=== PATIENT | male | born 1960 | race Caucasian/White ===

== ENCOUNTER → 2022-04-09 | Day surgery (SDC) | payer BC ==
[2022-04-06 10:09] VITALS: BMI 43.5
[~2022-04-09] MED LIST: LACTATED RINGERS 1,000 ML IV SCH; PROPOFOL 10 MG/ML 20 ML VIAL IV ONE
--- NOTE | 2022-04-09 07:38 | P.GSHP ---
History of Present Illness H&P Date: 04/09/22 CHIEF COMPLAINT: GERD HISTORY OF PRESENT ILLNESS: The patient is a 61-year-old male who presents reports gastroesophageal reflux disease. Upper endoscopy was offered for further evaluation and management. PAST MEDICAL HISTORY: Please see list. PAST SURGICAL HISTORY: Please see list. MEDICATIONS: Please see list. ALLERGIES: Please see list. SOCIAL HISTORY: No illicit drug use FAMILY HISTORY: No reports of Crohn disease or ulcerative colitis. REVIEW OF ORGAN SYSTEMS: CONSTITUTIONAL: No reports of fevers or chills. GI: Denies any blood in stools or constipation. PHYSICAL EXAM: VITAL SIGNS: Stable GENERAL: Well-developed and pleasant in no acute distress. HEENT: No scleral icterus. Extraocular movements grossly intact. Moist buccal mucosa. NECK: Supple without lymphadenopathy. CHEST: Unlabored respirations. Equal bilateral excursions. CARDIOVASCULAR: Regular rate and rhythm. Distal 2+ pulses. ABDOMEN: Soft, nondistended. MUSCULOSKELETAL: No clubbing, cyanosis, or edema. ASSESSMENT: 1. Gastroesophageal reflux disease PLAN: 1. Recommend proceeding with an upper endoscopy Past Medical History Past Medical History: Thyroid Disorder Additional Past Medical History / Comment(s): constipation, hypothyroid History of Any Multi-Drug Resistant Organisms: None Reported Past Surgical History: Orthopedic Surgery Additional Past Surgical History / Comment(s): left hand surgery Past Anesthesia/Blood Transfusion Reactions: No Reported Reaction, Motion Sickness Past Psychological History: No Psychological Hx Reported Smoking Status: Former smoker, Unknown if ever smoked Past Alcohol Use History: Occasional Additional Past Alcohol Use History / Comment(s): quit smoking 18 yrs ago (2003)., started smoking high school, hx of 1 ppd. Past Drug Use History: None Reported - Past Family History Mother Family Medical History: Cancer Additional Family Medical History / Comment(s): colon cancer Sister(s) Family Medical History: Cancer Medications and Allergies Home Medications Medication Instructions Recorded Confirmed Type Levothyroxine Sodium [Synthroid] 175 mcg PO DAILY 03/08/22 04/06/22 History Allergies Allergy/AdvReac Type Severity Reaction Status Date / Time Penicillins Allergy Unknown Verified 04/06/22 10:02 Childhood
[2022-04-09 08:22] VITALS: TEMP 98.4
[2022-04-09 09:18] VITALS: BP 140/85; PULSE 78; RESP 16
--- NOTE | 2022-04-09 09:59 | P.PCN ---
Date of Procedure: 04/09/22 Description of Procedure: PREOPERATIVE DIAGNOSIS: Gastroesophageal reflux disease. Morbid obesity. POSTOPERATIVE DIAGNOSIS: Gastroesophageal reflux disease Morbid obesity. Gastritis with erosive esophagitis OPERATION: Esophagogastroduodenoscopy with biopsies along antrum, duodenum and GE junction SURGEON: Dominique Lucas MD ANESTHESIA: MAC. INDICATIONS: The patient is a 61-year-old male who presents with reflux disease. Benefits and risks of the procedure were described. Informed consent was obtained. DESCRIPTION: The patient was brought into the endoscopy suite and laid in the left lateral decubitus position. An Olympus gastroscope was passed along the posterior oropharynx down to the distal esophagus where the squamocolumnar junction was encountered at 40 cm from the incisors. The stomach was entered and no bile reflux was found. Additional findings are listed below. Biopsies with cold forceps were obtained of the antrum. The first through third portion of the duodenum was examined. Retroflexion of the scope confirmed Hill grade 2 lower esophageal valve. The squamocolumnar junction demonstrated LA grade D erosive esophagitis. The stomach was desufflated. The patient tolerated the procedure well. FINDINGS: Squamocolumnar junction 40 cm from the incisors. Diaphragmatic hiatus at 40 cm. Hill grade 2 lower esophageal valve. LA grade D erosive esophagitis, 1 cm erosion with biopsies obtained and GE junction Cold forceps biopsies obtained of duodenum for celiac disease Chronic gastritis with biopsies obtained RECOMMENDATIONS: Upper endoscopy in one year, 2022 Omeprazole 40 mg daily for erosive esophagitis Plan - Discharge Summary New Discharge Prescriptions: New Omeprazole [PriLOSEC] 40 mg PO DAILY #14 cap Continue Levothyroxine Sodium [Synthroid] 175 mcg PO DAILY Discharge Medication List Levothyroxine Sodium [Synthroid] 175 mcg PO DAILY 03/08/22 [History] Omeprazole [PriLOSEC] 40 mg PO DAILY #14 cap 04/09/22 [Rx] [facility]Ref[facility] [place] [facility] Patient Instructions/Handouts: *[facility] - (Anesthesia) Endoscopy Discharge Instructions, Salvador Esophagus (GEN) Discharge Disposition: HOME SELF-CARE
== END | disposition home or self-care (01) ==
LOC: ORWHC2ENDO 07:25
PROVIDERS: ATTEND Surgery Plastic and Reconstructive Surgery
DX: K21.00 Gastro-esophageal reflux disease with esophagitis, without bleeding (principal); K29.50 Unspecified chronic gastritis without bleeding; K44.9 Diaphragmatic hernia without obstruction or gangrene; E66.01 Morbid (severe) obesity due to excess calories; Z68.41 Body mass index [BMI] 40.0-44.9, adult; E03.9 Hypothyroidism, unspecified; Z88.0 Allergy status to penicillin; Z79.890 Hormone replacement therapy; Z87.891 Personal history of nicotine dependence; Z80.0 Family history of malignant neoplasm of digestive organs; Z79.899 Other long term (current) drug therapy
CPT/HCPCS: 88305; 43239; J2704

== ENCOUNTER → 2022-04-21 | Outpatient (CLI) | payer BC ==
[2022-04-21 12:01] LABS: INR 0.9 (<1.2); Partial Thromboplastin Time 24.7 sec (22.0-30.0)
[2022-04-21 17:35] LABS: HCT 52.4 % (39.6-50.0); HGB 16.8 g/dL (13.0-17.0); MCHC 32.1 g/dL (32.0-37.0); MCV 90.3 fL (80.0-97.0); Mean Platelet Volume 10.8 fL (9.5-12.2); NRBC Per 100 WBC 0 /100 WBCS (0.0-0.0); Platelet Count 245 X 10*3/uL (140-440); RDW 14.2 % (11.5-14.5); WBC 9.03 X 10*3/uL (4.50-10.00)
[2022-04-21 17:49] LABS: % Iron Saturation 24.92 (15.00-50.00); ALT 41 U/L (10-49); AST 28 U/L (14-35); African American GFR (CKD) 94.4 (60.0-200.0); Albumin 4.4 g/dL (3.8-4.9); Albumin/Globulin Ratio 1.58 (1.60-3.17); Alkaline Phosphatase 78 U/L (41-126); Blood Urea Nitrogen 14.4 mg/dL (9.0-27.0); Calcium 9.2 mg/dL (8.7-10.3); Carbon Dioxide 22.5 mmol/L (20.0-27.5); Chloride 103 mmol/L (96-109); Globulin 2.8 g/dL (1.6-3.3); Glucose 86 mg/dL (70-110); Iron 96 ug/dL (65-175); Magnesium 2.1 mg/dL (1.5-2.4); Non-African American GFR(CKD) 81.4 (60.0-200.0); Phosphorus 2.3 mg/dL (2.4-5.1); Potassium 4.8 mmol/L (3.5-5.5); Sodium 140 mmol/L (135-145); Total Iron Binding Capacity 384 ug/dL (228-460); Total Protein 7.2 g/dL (6.2-8.2)
[2022-04-21 18:24] LABS: Chol/HDL Ratio 5.51 Ratio; LDL Cholesterol,Calculated 107.3 mg/dL (0.0-131.0); Prealbumin 24.1 mg/dL (18.0-42.0)
[2022-04-23 12:42] LABS: Zinc, Serum 70 ug/dL (60-130)
[2022-04-24 06:11] LABS: Anabasine Urine <2.0 ng/mL (<2.0)
== END | disposition home or self-care (01) ==
LOC: LABWHC1 10:29
PROVIDERS: ATTEND Surgery Plastic and Reconstructive Surgery
DX: Z71.51 Drug abuse counseling and surveillance of drug abuser (principal); E66.01 Morbid (severe) obesity due to excess calories; D50.8 Other iron deficiency anemias; K91.2 Postsurgical malabsorption, not elsewhere classified; E44.0 Moderate protein-calorie malnutrition; E45 Retarded development following protein-calorie malnutrition; E55.9 Vitamin D deficiency, unspecified; K74.1 Hepatic sclerosis; N19 Unspecified kidney failure; K50.90 Crohn's disease, unspecified, without complications
CPT/HCPCS: 84255; 84134; 84425; 80061; 80053; 82607; 82728; 82525; 82746; 83540; 83550; 83735; 84100; 84443; 84590; 84630; 85027; 85610; 85730; 82306; 80323; 83970; 83036; 80307; 93005; 36415; G0482